=== PATIENT | female | born 1945 | race Caucasian/White ===

== ENCOUNTER 2017-01-28 20:39 | Emergency (ER) | payer MEDICARE ==
[~2017-01-28] VITALS: Ht 152.4 cm; Wt 51.3 kg
[~2017-01-28 20:39] MED LIST: ASPI81 PO; CALCTAB80 OR; FEXO60TA PO; LORA-392 PO; METH500T3 PO; PROBCAP10 OR; PROT40TA PO; RANI150 PO; REST15CA PO; SIMV5TAB32 PO
[2017-01-28 20:57] VITALS: BP 128/60; PULSE 84; RESP 12; TEMP 98.7; O2SAT 95
[2017-01-28] MEDS ORDERED: ZANT150T2 PO (21:11)
[2017-01-28] MEDS ORDERED: TRAZ50TA12 PO (21:11)
[2017-01-28] MEDS ORDERED: PROT40TA PO (21:11)
[2017-01-28] MEDS ORDERED: CEFU1TAB20 PO (21:11)
[2017-01-28] MEDS ORDERED: predniSONE 20 MG TAB PO ONE (21:30)
[2017-01-28] MEDS ORDERED: RESP: ALBUTEROL 2.5 MG/IPRATROPIUM 0.5 MG NEB (SCH) NEB ONE (21:30)
[2017-01-28] MEDS ORDERED: ALBUAER3 INH (21:44)
[2017-01-28] MEDS ORDERED: E-ZMIS3 (21:45)
[2017-01-28] MEDS ORDERED: MEDR4PAK PO (21:45)
--- NOTE | 2017-01-28 21:47 | PD ---
HPI Chief Complaint: Cold / Flu Symptoms Time Seen by Provider: 21:22 Travel History International Travel<30 days: No Contact w/Intl Traveler<30days: No Traveled to known affect area: No History of Present Illness HPI 71-year-old female presents to the emergency department by private transportation for complaint of wheezing and chest tightness. Patient reports that last week on Sunday she started noticing sinus symptoms with drainage and phlegm production. Patient notified her primary care provider and was phoned in a prescription for a cephalosporin antibiotic. Patient states symptoms had worsened by developing hoarseness and laryngitis. Patient states she' s continue take her antibiotic but is noticed that she's developing shortness of breath and wheezing. Patient denies any chest pain. Patient denies any referred neck jaw back shoulder arm pain. No reported fever or chills. One episode of posttussive emesis but no bilious emesis coffee-ground emesis or hematemesis. Patient denies any abdominal pain or diarrhea. Patient's had no flank pain or dysuria frequency or urgency. Patient denies myalgias arthralgias joint pain swelling or skin rash. Patient states she has had remote episode of bronchitis in the past and this is similar. Patient is prior tobacco user but no use of tobacco for greater than 10 years. Patient denies any other concerns or complaints. PFSH Past Medical History Narrative Medical GERD mitral valve prolapse cholecystectomy hysterectomy no tobacco use nursing notes reviewed Heart Rhythm Problems: No Cancer: No Cardiac Catheterization: No Cardiovascular Problems: Yes (PVC'S, MVP) High Cholesterol: No Congestive Heart Failure: No Diabetes: No Diminished Hearing: No Gastrointestinal Disorders: Yes (GALLBLADDER DISEASE) GERD: Yes Hepatitis: No Hiatal Hernia: No Hypertension: No Medical other: Yes (GERD) Myocardial Infarction: No Thyroid Disease: No Tetanus Vaccination: < 5 Years Influenza Vaccination: Yes Past Surgical History Cholecystectomy: Yes Coronary Artery Bypass Graft: No Genitourinary Surgery: Yes (AP REPAIR) Gynecologic Surgery: Yes (HYSTERECTOMY) Hysterectomy: Yes Pacemaker: No Other Surgery: Yes (LUMPECTOMY LT BREAST , ABDOMINALPLASTY 1999) Family History Family Myocardial Infarction: Yes (MOTHER) Social History Alcohol Use: Yes (RARE) Tobacco Use: No Substance Use: No Allergies-Medications (Allergen,Severity, Reaction): Coded Allergies: Codeine (Verified Allergy, Severe, 01/28/17) Morphine (Verified Allergy, Severe, 01/28/17) Reported Meds & Prescriptions Reported Meds & Active Scripts Active Medrol Dosepak (Methylprednisolone) 4 Mg Dspk 4 Mg PO DIRECTED Per Pharmacist direction E-Z Spacer-Aerosol Holding Chamber 1 Mis Mis 1 Ea .ROUTE DIRECTED Proair Hfa 8.5 GM Inh (Albuterol Sulfate) 90 Mcg/Act Aer 1-2 Puff INH Q4-6H PRN 108 mcg/actuation Reported Cefuroxime (Cefuroxime Axetil) 500 Mg Tab 500 Mg PO BID Zantac (Ranitidine HCl) 150 Mg Tab 150 Mg PO DAILY Protonix (Pantoprazole Sodium) 40 Mg Tab 40 Mg PO DAILY Trazodone (Trazodone HCl) 50 Mg Tab Unknown Dose PO HS Review of Systems Except as stated in HPI: all other systems reviewed are Neg General / Constitutional: Positive: Chills, No: Fever Eyes: No: Foreign Body Sensation HENT: Positive: Congestion, No: Headaches, Sore Throat, Earache Cardiovascular: No: Chest Pain or Discomfort Respiratory: Positive: Cough, Wheezing, No: Shortness of Breath Gastrointestinal: Positive: Vomiting (x1), No: Abdominal Pain Genitourinary: No: Dysuria, Flank Pain Musculoskeletal: No: Myalgias, Arthralgias Skin: No Rash Neurologic: No: Weakness Psychiatric: No: Anxiety Hematologic/Lymphatic: No: Lymph Node Enlargement Physical Exam Narrative GENERAL: Well-developed well-nourished female with hoarseness no stridor SKIN: Warm and dry. HEAD: Normocephalic. EYES: No scleral icterus. No injection or drainage. NECK: Supple, trachea midline. No JVD or lymphadenopathy. CARDIOVASCULAR: Regular rate and rhythm without murmurs, gallops, or rubs. RESPIRATORY: Breath sounds equal bilaterally diminished with expiratory wheeze. No accessory muscle use. GASTROINTESTINAL: Abdomen soft, non-tender, nondistended. MUSCULOSKELETAL: No cyanosis, or edema. BACK: Nontender without obvious deformity. No CVA tenderness. Data Data Last Documented VS Vital Signs Date Time Temp Pulse Resp B/P Pulse Ox O2 Delivery O2 Flow Rate FiO2 01/28/17 21:06 95 Room Air 01/28/17 20:57 98.7 84 12 128/60 Orders Albuterol-Ipratropium Neb (Duoneb Neb) (6/11/17 21:30) Prednisone (Deltasone) (01/28/17 21:30) MDM Medical Decision Making Medical Screen Exam Complete: Yes Emergency Medical Condition: Yes Medical Record Reviewed: Yes Differential Diagnosis Bronchitis, pneumonia, sinusitis, viral syndrome, tracheitis, ACS Narrative Course Patient clinically improved after DuoNeb updraft and stable for outpatient management Patient stable for outpatient management prescription provided for albuterol inhaler with spacer; Medrol Dosepak Patient encouraged to complete course of antibiotic as prescribed and to follow- up with primary care provider Diagnosis Primary Impression: Bronchitis Referrals: Primary Care Physician 1 day Patient Instructions: General Instructions Additional Instructions: Continue chronic medications as presently prescribed Complete course of antibiotic Complete course of steroid taper as prescribed Use albuterol inhaler as prescribed as needed for wheezing or shortness of breath Follow-up with your primary care provider call office in a.m. to schedule follow -up appointment Return to the emergency department for any concerns or change in condition Take acetaminophen/Tylenol as needed for fever 100.4F or greater Med/Other Pt SpecificInfo: Prescription(s) given Scripts Methylprednisolone Dosepak (Medrol Dosepak)4 Mg Dspk4 Mg PO DIRECTED #1 DSPK Ref 0 Per Pharmacist direction Prov:Emmy Hdz MD 01/28/17 E-Z Spacer-Aerosol Holding Chamber 1 Mis Mis #1 EA .ROUTE DIRECTED Ref 0 Prov:Emmy Hdz MD 01/28/17 Albuterol 8.5 GM Inh (Proair Hfa 8.5 GM Inh)90 Mcg/Act Aer1-2 Puff INH Q4-6H PRN (SHORTNESS OF BREATH) #1 INHALER Ref 0 108 mcg/actuation Prov:Emmy Hdz MD 01/28/17 Disposition: 01 DISCHARGE HOME Condition: Stable Emmy Hdz MD Jan 28, 2017 21:46
== END 2017-01-28 22:18 | disposition home or self-care (01) ==
LOC: PHEFT 20:39
DX: J40 Bronchitis, not specified as acute or chronic (principal); Z87.891 Personal history of nicotine dependence; I34.1 Nonrheumatic mitral (valve) prolapse; K21.9 Gastro-esophageal reflux disease without esophagitis
CPT/HCPCS: 94664; 99284; J7512